=== PATIENT | female | born 1975 | race Caucasian/White ===

== ENCOUNTER → 2017-03-03 | Outpatient (CLI) | payer OTHER | LOC: MC.RAD 13:23 | DX: Z12.31 Encounter for screening mammogram for malignant neoplasm of breast (principal) ==

== ENCOUNTER → 2017-03-05 | Outpatient (CLI) | payer OTHER | LOC: MC.RAD 10:49 | DX: N63 Unspecified lump in breast (principal); R92.2 Inconclusive mammogram; N64.89 Other specified disorders of breast ==

== ENCOUNTER → 2017-03-09 | Outpatient (CLI) | payer OTHER | LOC: MC.RAD 10:22 | DX: Z01.818 Encounter for other preprocedural examination (principal); N64.89 Other specified disorders of breast ==

== ENCOUNTER → 2017-09-04 | Outpatient (CLI) | payer OTHER | LOC: MC.RAD 08:18 | DX: R92.8 Other abnormal and inconclusive findings on diagnostic imaging of breast (principal); D24.1 Benign neoplasm of right breast ==

== ENCOUNTER 2018-03-09 14:24 | Emergency (ER) | payer OTHER ==
[~2018-03-09] VITALS: Ht 172.7 cm; Wt 81.8 kg
[2018-03-09 14:27] VITALS: BP 142/74; TEMP 98.9
[2018-03-09] MEDS ORDERED: CRUTCHES MC (16:05)
[2018-03-09 16:10] VITALS: PULSE 69
== END 2018-03-09 16:12 | disposition home or self-care (01) ==
LOC: COL.ER 14:24
DX: S99.912A Unspecified injury of left ankle, initial encounter (principal); W18.11XA Fall from or off toilet without subsequent striking against object, initial encounter; Y92.009 Unspecified place in unspecified non-institutional (private) residence as the place of occurrence of the external cause
CPT/HCPCS: Q4045

== ENCOUNTER → 2023-05-29 | Outpatient (CLI) | payer OTHER ==
[~2023-05-29] MED LIST: CRUTCHES MC
== END ==
LOC: MC.RAD 09:01
DX: Z12.31 Encounter for screening mammogram for malignant neoplasm of breast (principal); N64.89 Other specified disorders of breast